=== PATIENT | female | born 1995 | race Caucasian/White ===

== ENCOUNTER 2020-09-06 13:16 | Emergency (ER) | payer BC, MEDICAID, SELFPAY ==
[2020-09-06 13:19] VITALS: BP 112/77; PULSE 105; RESP 16; O2SAT 99; BMI 20.4
--- NOTE | 2020-09-06 13:40 | W.ED.GENADLT ---
HPI - General Adult General: Chief complaint: General Medical Stated complaint: N/ CHILLS/WEAKNESS Time Seen by Provider: 09/06/20 13:31 History of Present Illness: HPI narrative: This patient is a 25 year old female presenting with vomiting and diarrhea. She reports that it started yesterday afternoon and has been ongoing. She has been exposed to her grandmother who has had vomiting and diarrhea - but also is trying to stop using fentanyl and thinks the symptoms could be withdrawal. She last used about 30 minutes before the symptoms started - at about 2:30 yesterday. She doesn't know how much she uses - she has been shooting up with about half a cap every 3 or 4 hours. She has been using for about 3 months only. She stopped once for 4 days and had similar symptoms until she used again. She really wants to get clean. Onset (ago): day(s) (1) Associated symptoms: Reports malaise, nausea, vomiting and other (diarrhea); Deny chest pain, dyspnea, headache(s) or rash Review of Systems General: Reports: 10 or more systems reviewed and unremarkable except in HPI and below Const: Reports: malaise Eyes: Denies: change in vision ENMT: Denies: odynophagia Card: Denies: chest pain or swelling of feet/ankles Resp: Denies: dyspnea, productive cough or non-productive cough GI: Reports: nausea, vomiting and diarrhea : Denies: flank pain or difficulty voiding Musc: Denies: neck pain or back pain Skin/Breast: Denies: rash Neuro: Denies: headache(s), numbness in extremities or weakness in extremities Laurent/Lymph: Denies: easy bruising or easy bleeding Physical Exam Const: COMMON NORMALS: no acute distress, patient oriented x3, no limitations and alert GENERAL APPEARANCE: cooperative and comfortable HENMT: HEAD & SCALP: normal to inspection FACE & SINUS: normal facial exam Eye: GENERAL EYE: appearance normal, both eyes and all related structures Neck/C-Spine: COMMON NORMALS: supple, no meningeal signs and no JVD Chest: COMMONS NORMALS: normal inspection of the chest Resp: COMMON NORMALS: normal respiratory effort, No use of accessory muscles and clear to auscultation bilaterally AUSCULTATION: clear to auscultation bilaterally Cardio: COMMON NORMALS: no JVD, regular rate, regular rhythm and No murmurs present (Cardio) RATE: regular rate RHYTHM: regular rhythm GI: COMMON NORMALS: Normal to inspection, nondistended, normoactive bowel sounds present, Soft to palpation and non-tender INSPECTION: Yes normal to inspection AUSCULTATION: Yes normoactive bowel sounds PALPATION: Yes Soft to palpation Back/Pelvis: COMMON NORMALS: thoracic and lumbar spine normal to inspection Extremity: COMMON NORMALS: normal to inspection Neuro: COMMON NORMALS: patient oriented x3, moves all extremities, no focal motor deficits and no sensory deficits noted SENSORIUM/ORIENTATION: Yes alert MENINGEAL SIGNS: Yes no meningeal signs Psych: COMMON NORMALS: mental status grossly normal, cooperative and normal affect Skin: COMMON NORMALS: no rashes or lesions noted and turgor normal GENERAL SKIN EXAM: no rashes or lesions noted and turgor normal Course ED course: Patient eventually felt better and was able to keep down fluids. Given resources and I answered her questions about opiates, treatment, withdrawal - and about hepatitis. She has outpatient follow up and I encouraged her to ask for help with her substance abuse. Vital Signs: Vital signs: Vital Signs Pulse Rate 105 H 09/06/20 13:19 Respiratory Rate 16 09/06/20 13:19 Blood Pressure 112/77 09/06/20 13:19 Pulse Oximetry 99 09/06/20 13:19 MDM - General Adult MDM Narrative: Medical decision making narrative: GE, opiate withdrawal, Lab Data: Labs: Lab Results 09/06/20 09/06/20 09/06/20 Range/Units 14:03 14:03 14:03 WBC 9.5 (4.0-10.0) 10^3/ uL RBC 4.80 (4.1-5.3) 10^6/u L Hgb 14.3 (11.5-15.3) g/dL Hct 43.9 (37.0-47.0) % MCV 91.5 (81-99) fL MCH 29.8 (28.0-34.0) pg MCHC 32.6 (30.0-36.0) g/dL RDW 11.9 L (12.1-15.1) % Plt Count 381 (130-400) 10^3/c mm MPV 9.9 (7.4-10.4) fL Neut % (Auto) 79.9 % Lymph % (Auto) 16.7 % [place] % (Auto) 2.5 % Eos % (Auto) 0.1 % Baso % (Auto) 0.5 % Neut # (Auto) 7.61 (1.8-7.7) 10^3/u L Lymph # (Auto) 1.6 (0.8-4.8) 10^3/u L [place] # (Auto) 0.2 (0.2-0.9) 10^3/u L Eos # (Auto) 0.0 (0.0-0.8) 10^3/u L Baso # (Auto) 0.1 (0.0-0.1) 10^3/u L Nucleated RBC % (a uto) 0 % Nucleated RBCs # 0.0 /100WBC Sodium 141 (136-145) mmol/L Potassium 3.6 (3.5-5.1) mmol/L Chloride 104 (98-107) mmol/L Carbon Dioxide 27 (22-29) mmol/L Anion Gap 13.6 (5-19) BUN 10 (6-20) mg/dL Creatinine 0.5 (0.5-0.9) mg/dL GFR Calculation 151.6 H (90-130) mL/min Glucose 143 H (65-115) mg/dL Calculated Osmolal ity 294 (285-295) mOsm/k g Calcium 9.1 (8.5-10.5) mg/dL Total Bilirubin 1.0 (0.15-1.2) mg/dL AST 71 H (0-32) U/L ALT 213 H (0-33) U/L Alkaline Phosphata se 122 H (35-105) IU/L Total Protein 7.6 (6.6-8.7) g/dL Albumin 4.3 (3.5-5.2) g/dL Globulin 3.3 (1.3-4.6) g/dL HCG, Qual Negative (Negative) Urine Color (Yellow) Urine Appearance (CLEAR) Urine pH (5-7) Ur Specific Gravit y (1.005-1.030) Urine Protein (Negative) Urine Glucose (UA) (Normal) Urine Ketones (Negative) Urine Blood (Negative) Urine Nitrate (Negative) Urine Bilirubin (Negative) Urine Urobilinogen (Negative) mg/dL Ur Leukocyte Cheryl ase (Negative) Urine RBC (0-2) /hpf Urine WBC (0-5) /hpf Ur Squamous Epith Cells (0-5) /hpf Amorphous Sediment /hpf Urine Bacteria (NONE) /hpf Hepatitis A IgM Ab (Nonreactive) Hep Bs Antigen (Nonreactive) Hep B Core IgM Ab (Nonreactive) 09/06/20 09/06/20 Range/Units 14:03 15:04 WBC (4.0-10.0) 10^3/ uL RBC (4.1-5.3) 10^6/u L Hgb (11.5-15.3) g/dL Hct (37.0-47.0) % MCV (81-99) fL MCH (28.0-34.0) pg MCHC (30.0-36.0) g/dL RDW (12.1-15.1) % Plt Count (130-400) 10^3/c mm MPV (7.4-10.4) fL Neut % (Auto) % Lymph % (Auto) % [place] % (Auto) % Eos % (Auto) % Baso % (Auto) % Neut # (Auto) (1.8-7.7) 10^3/u L Lymph # (Auto) (0.8-4.8) 10^3/u L [place] # (Auto) (0.2-0.9) 10^3/u L Eos # (Auto) (0.0-0.8) 10^3/u L Baso # (Auto) (0.0-0.1) 10^3/u L Nucleated RBC % (a uto) % Nucleated RBCs # /100WBC Sodium (136-145) mmol/L Potassium (3.5-5.1) mmol/L Chloride (98-107) mmol/L Carbon Dioxide (22-29) mmol/L Anion Gap (5-19) BUN (6-20) mg/dL Creatinine (0.5-0.9) mg/dL GFR Calculation (90-130) mL/min Glucose (65-115) mg/dL Calculated Osmolal ity (285-295) mOsm/k g Calcium (8.5-10.5) mg/dL Total Bilirubin (0.15-1.2) mg/dL AST (0-32) U/L ALT (0-33) U/L Alkaline Phosphata se (35-105) IU/L Total Protein (6.6-8.7) g/dL Albumin (3.5-5.2) g/dL Globulin (1.3-4.6) g/dL HCG, Qual (Negative) Urine Color Yellow (Yellow) Urine Appearance Cloudy (CLEAR) Urine pH 8 H (5-7) Ur Specific Gravit y 1.015 (1.005-1.030) Urine Protein Neg (Negative) Urine Glucose (UA) Norm (Normal) Urine Ketones Negative (Negative) Urine Blood Neg (Negative) Urine Nitrate Negative (Negative) Urine Bilirubin Neg (Negative) Urine Urobilinogen 1 H (Negative) mg/dL Ur Leukocyte Cheryl ase Trace H (Negative) Urine RBC None (0-2) /hpf Urine WBC 0-4 H (0-5) /hpf Ur Squamous Epith Cells 15-25 H (0-5) /hpf Amorphous Sediment 2+ /hpf Urine Bacteria 1+ H (NONE) /hpf Hepatitis A IgM Ab Non-reactive (Nonreactive) Hep Bs Antigen Non-reactive (Nonreactive) Hep B Core IgM Ab Non-reactive (Nonreactive) Discharge Plan Discharge Patient Disposition: Home Clinical Impression: Opiate withdrawal, Hepatitis C antibody test positive Vomiting Qualifiers: Vomiting type: unspecified Vomiting Intractability: non-intractable Nausea presence: with nausea Qualified Code(s): R11.2 - Nausea with vomiting, unspecified Condition: Stable Prescriptions: New promethazine 25 mg tablet 25 mg PO Q6H PRN (Reason: nausea and vomiting) Qty: 14 RF: 0 baclofen 10 mg tablet 10 mg PO Q8H PRN (Reason: muscle spasm) Qty: 10 RF: 0 Narcan 4 mg/actuation spray,non-aerosol 1 spray intranasal Q2M PRN (Reason: opioid overdose) Qty: 2 RF: 0 Discharge Orders: Discharge ED (Routine); Ordered 09/06/20 Ordered By: Flora Dimas Referrals: [facility], [Staff Physician] - Flores,BRUCE Pal [Primary Care Provider] - Discharge Diet: Advance as tolerated Discharge Activity: Resume usual activity Patient Instructions: Hepatitis C, Opioid Withdrawal (ED), Opioid Safety Activity Restrictions/Additional Instructions: Follow up with your doctor to discuss treatment for hepatitis C and for treatment for your opiate abuse. Coding Level of Care Code ED Aviation Safety Officer for Kaylan Fwd Exam Comprehensive
[2020-09-06] MEDS: sodium chloride 0.9% 1,000 ML 999 ML IV (14:08)
[2020-09-06] MEDS: ondansetron 2 mg/ML SDV 2 mL 4 MG IVP ×2 (14:08→16:57)
[2020-09-06 14:13] LABS: Basophils # 0.1 10^3/uL (0.0-0.1); Basophils % 0.5 %; Eosinophils % 0.1 %; Hematocrit 43.9 % (37.0-47.0); Hemoglobin 14.3 g/dL (11.5-15.3); Lymphocytes # 1.6 10^3/uL (0.8-4.8); Lymphocytes % 16.7 %; Mean Corpuscular HGB Conc 32.6 g/dL (30.0-36.0); Mean Corpuscular Hemoglobin 29.8 pg (28.0-34.0); Mean Corpuscular Volume 91.5 fL (81-99); Mean Platelet Volume 9.9 fL (7.4-10.4); Monocytes # 0.2 10^3/uL (0.2-0.9); Monocytes % 2.5 %; Neutrophils # 7.61 10^3/uL (1.8-7.7); Neutrophils % 79.9 %; Nucleated Red Blood Cells % 0 %; Platelet Count 381 10^3/cmm (130-400); Red Cell Distribution Width 11.9 % (12.1-15.1); White Blood Count 9.5 10^3/uL (4.0-10.0)
[2020-09-06 14:36] LABS: Alanine Aminotransferase 213 U/L (0-33); Albumin Level 4.3 g/dL (3.5-5.2); Alkaline Phosphatase 122 IU/L (35-105); Aspartate Amino Transferase 71 U/L (0-32); Blood Urea Nitrogen 10 mg/dL (6-20); Calcium 9.1 mg/dL (8.5-10.5); Carbon Dioxide 27 mmol/L (22-29); Chloride 104 mmol/L (98-107); Globulin 3.3 g/dL (1.3-4.6); Glomerular Filtration Rate 151.6 mL/min (90-130); Glucose 143 mg/dL (65-115); Osmolality Calculated 294 mOsm/kg (285-295); Sodium 141 mmol/L (136-145); Total Protein 7.6 g/dL (6.6-8.7)
[2020-09-06 14:38] LABS: HCG, Serum Qual Negative (Negative)
[2020-09-06 14:45] LABS: Anion Gap 13.6 (5-19); Potassium 3.6 mmol/L (3.5-5.1)
[2020-09-06 15:41] LABS: Bilirubin Urine Neg (Negative); Blood Urine Neg (Negative); Glucose Urine UA Norm (Normal); Ketones Urine Negative (Negative); Nitrate Urine Negative (Negative); Protein Urine Neg (Negative); Specific Gravity, Urine 1.015 (1.005-1.030); Urine Appearance Cloudy (CLEAR); Urine Color Yellow (Yellow); Urobilinogen Urine 1 mg/dL (Negative); pH Urine 8 (5-7)
[2020-09-06 15:42] LABS: Add Urine Microscopic? YES; Leukocyte Esterase Urine Trace (Negative)
[2020-09-06 15:43] LABS: Add Urine Culture? No; Amorphous Sediment Urine 2+ /hpf; Bacteria Urine 1+ /hpf; Squamous Epithelial Cell Urine 15-25 /hpf (0-5); WBC Urine 0-4 /hpf (0-5)
[2020-09-06 16:48] LABS: Hepatitis A Antibody IgM Non-Reactive (Nonreactive); Hepatitis B Core IgM Non-Reactive (Nonreactive); Hepatitis B Surface Antigen Non-Reactive (Nonreactive)
--- NOTE | 2020-09-06 18:25 | PC.NURSE ---
pt provided with water for PO challenge. pt passed PO challenge. aware.
[2020-09-06 18:33] VITALS: BP 134/78; PULSE 88; RESP 18; O2SAT 99
[2020-09-06 22:34] LABS: Hepatitis C Virus Antibody Reactive (Nonreactive)
== END 2020-09-06 18:34 | disposition home or self-care (01) ==
PROVIDERS: Emergency Provider Emergency Medicine; PCP Nurse Practitioner Family
DX: F11.23 Opioid dependence with withdrawal (principal); B19.20 Unspecified viral hepatitis C without hepatic coma; R11.2 Nausea with vomiting, unspecified
CPT/HCPCS: 80053; 80074; 81001; 84703; 85025; 96374; 96376; 99283; J2405; J7030

== ENCOUNTER 2022-07-01 18:52 | Emergency (ER) | payer BC, MEDICAID, SELFPAY ==
--- NOTE | 2022-07-01 19:02 | ED_ITS ---
HPI - Overdose General: Chief Complaint: Overdose Stated Complaint: possible OD Time Seen by Provider: 07/01/22 18:56 Source: patient Mode of arrival: ambulatory Limitations: no limitations History of Present Illness: Patient presents here with a drug overdose patient was initially unresponsive hypoxic into the 40s I did place a mask on her and did a jaw thrust she then awoke she told me that she did take what she thought was meth but thinks that it had either fentanyl or heroin and it just prior to arrival patient's friend brought her in and when she is unresponsive she is still under the influence was able answer my questions she denies any suicide attempts after the initial drawl thrust with painful stimulation she is breathing on her own with pulse ox in the 90s Review of Systems Const: Denies: fever(s), chills, body aches or change in appetite Eyes: Denies: blurry vision or eye discomfort ENMT: Denies: throat pain or dental pain Card: Denies: chest pain Resp: Denies: dyspnea GI: Denies: abdominal pain, nausea, vomiting or diarrhea : Denies: dysuria Musc: Denies: neck pain or back pain Skin/Breast: Denies: rash Neuro: Denies: headache(s) Psych: Denies: depression Laurent/Lymph: Denies: easy bruising All/Imm: Denies: urticaria Physical Exam Const: COMMON NORMALS: no acute distress, patient oriented x3 and healthy appearing HENMT: COMMON NORMALS: normocephalic and atraumatic HEAD & SCALP: normocephalic and atraumatic Eye: COMMON NORMALS: Equal, round and reactive pupils present and EOMs intact bilaterally PUPIL: Yes Equal, round and reactive pupils present Neck/C-Spine: COMMON NORMALS: full ROM and supple Chest: COMMONS NORMALS: normal inspection of the chest and normal palpation of entire chest wall Resp: COMMON NORMALS: normal respiratory effort, No retractions, No use of accessory muscles and clear to auscultation bilaterally AUSCULTATION: clear to auscultation bilaterally Cardio: COMMON NORMALS: regular rate, regular rhythm and No murmurs present (Cardio) RATE: regular rate RHYTHM: regular rhythm GI: COMMON NORMALS: Normal to inspection, nondistended, normoactive bowel sounds present, Soft to palpation, non-tender and no masses PALPATION: Yes Soft to palpation Extremity: COMMON NORMALS: normal to inspection and full ROM Neuro: COMMON NORMALS: patient oriented x3, moves all extremities and no focal motor deficits Psych: COMMON NORMALS: mental status grossly normal, Normal thought process present and cooperative THOUGHT PROCESS: Normal thought process present Skin: COMMON NORMALS: no rashes or lesions noted and no wounds GENERAL SKIN EXAM: no rashes or lesions noted MDM - Overdose Medical Decision Making Patient presents here with a drug overdose she believes it was likely fentanyl she has been awake and alert here she is requesting discharge at this time I feel she is stable for discharge she is to follow-up with PCP and return if worsening. Lab Data 07/01/22 19:06 07/01/22 19:06 Radiology Impressions Chest X-Ray 07/01/22 19:37 IMPRESSION: Negative chest Laboratory Results WBC 16.3 10^3/uL (4.0-10.0) H 07/01/22 19:06 RBC 4.97 10^6/uL (4.1-5.3) 07/01/22 19:06 Hgb 14.9 g/dL (11.5-15.3) 07/01/22 19:06 Hct 48.1 % (37.0-47.0) H 07/01/22 19:06 MCV 96.8 fl (81-99) 07/01/22 19:06 MCH 30.0 pg (28.0-34.0) 07/01/22 19:06 MCHC 31.0 g/dL (30.0-36.0) 07/01/22 19:06 RDW 12.9 % (12.1-15.1) 07/01/22 19:06 Plt Count 494 10^3/cmm (130-400) H 07/01/22 19:06 MPV 9.8 fL (7.4-10.4) 07/01/22 19:06 Neut % (Auto) 64.2 % 07/01/22 19:06 Lymph % (Auto) 30.0 % 07/01/22 19:06 [place] % (Auto) 3.8 % 07/01/22 19:06 Eos % (Auto) 0.6 % 07/01/22 19:06 Baso % (Auto) 1.0 % 07/01/22 19:06 Neut # (Auto) 10.45 10^3/uL (1.8-7.7) H 07/01/22 19:06 Lymph # (Auto) 4.9 10^3/uL (0.8-4.8) H 07/01/22 19:06 [place] # (Auto) 0.6 10^3/uL (0.2-0.9) 07/01/22 19:06 Eos # (Auto) 0.1 10^3/uL (0.0-0.8) 07/01/22 19:06 Baso # (Auto) 0.2 10^3/uL (0.0-0.1) H 07/01/22 19:06 Nucleated RBC % (auto) 0 % 07/01/22 19:06 Nucleated RBCs # 0.0 /100WBC 07/01/22 19:06 Sodium 138 mmol/L (136-145) 07/01/22 19:06 Potassium 4.3 mmol/L (3.5-5.1) 07/01/22 19:06 Chloride 102 mmol/L (98-107) 07/01/22 19:06 Carbon Dioxide 22 mmol/L (22-29) 07/01/22 19:06 Anion Gap 18.3 (5-19) 07/01/22 19:06 BUN 9 mg/dL (6-20) 07/01/22 19:06 Creatinine 0.6 mg/dL (0.5-0.9) 07/01/22 19:06 GFR Calculation 120.8 mL/min (90-130) 07/01/22 19:06 Glucose 152 mg/dL (65-115) H 07/01/22 19:06 Calculated Osmolality 288 mOsm/kg (285-295) 07/01/22 19:06 Calcium 9.9 mg/dL (8.5-10.5) 07/01/22 19:06 Total Bilirubin 1.0 mg/dL (0.15-1.2) 07/01/22 19:06 AST 49 U/L (0-32) H 07/01/22 19:06 ALT 76 U/L (0-33) H 07/01/22 19:06 Alkaline Phosphatase 114 U/L (35-105) H 07/01/22 19:06 Total Protein 8.5 g/dL (6.6-8.7) 07/01/22 19:06 Albumin 4.3 g/dL (3.5-5.2) 07/01/22 19:06 Globulin 4.2 g/dL (1.3-4.6) 07/01/22 19:06 Salicylates < 0.3 mg/dL (3-10) L 07/01/22 19:06 Acetaminophen < 5.0 ug/mL (10-30) L 07/01/22 19:06 Ethyl Alcohol < 10 mg/dL (0-10) 07/01/22 19:06 EKG Data EKG 1: I personally reviewed and interpreted this EKG as follows: EKG interpretation date: 07/01/22 EKG interpretation time: 19:30 Interpretation: sinus tach hr [address] or t wave abnormalities qrs 89 qtc 378 Discharge Plan Discharge Patient Disposition: Home Clinical Impression: Drug overdose Condition: Stable Prescriptions: No Action promethazine 25 mg tablet 25 mg PO Q6H PRN (Reason: nausea and vomiting) Qty: 14 0RF baclofen 10 mg tablet 10 mg PO Q8H PRN (Reason: muscle spasm) Qty: 10 0RF Narcan 4 mg/actuation spray,non-aerosol 1 spray intranasal Q2M PRN (Reason: opioid overdose) Qty: 2 0RF Rx Instructions: spray 1 dose into ONE nostril; alternate nostrils w each dose until help arrives Discharge Orders: Discharge ED (Routine); Ordered 07/01/22 Ordered By: Cristian Gill Referrals: Flores,Kae, COLD WORK OPERATOR [Primary Care Provider] - 1-3 days Discharge Diet: Advance as tolerated Discharge Activity: Resume usual activity Patient Instructions: Adult Overdose (ED) Coding Level of Care Code ED General Internal Medicine Physician for Chg Fwd Exam Comprehensive
[2022-07-01 19:18] LABS: Basophils # 0.2 10^3/uL (0.0-0.1); Eosinophils # 0.1 10^3/uL (0.0-0.8); Eosinophils % 0.6 %; Hematocrit 48.1 % (37.0-47.0); Hemoglobin 14.9 g/dL (11.5-15.3); Lymphocytes # 4.9 10^3/uL (0.8-4.8); Mean Corpuscular Volume 96.8 fl (81-99); Mean Platelet Volume 9.8 fL (7.4-10.4); Monocytes # 0.6 10^3/uL (0.2-0.9); Monocytes % 3.8 %; Neutrophils # 10.45 10^3/uL (1.8-7.7); Neutrophils % 64.2 %; Nucleated Red Blood Cells % 0 %; Platelet Count 494 10^3/cmm (130-400); Red Blood Count 4.97 10^6/uL (4.1-5.3); Red Cell Distribution Width 12.9 % (12.1-15.1); White Blood Count 16.3 10^3/uL (4.0-10.0)
--- NOTE | 2022-07-01 19:19 | ECG_ITS ---
[facility] Test Date: 2022-07-01 Pat Name: Anabel Hilario Department: Room: Gender: Female Major Gifts Officer: : 1995 Requested By: Cristian Gill Order Number: [id number] Mark MD: Carson Baker M.D. Measurements Intervals [place] Rate: 116 P: 42 SD: 131 QRS: 69 QRSD: 89 T: 29 QT: 309 QTc: 430 Interpretive Statements SINUS TACHYCARDIA NONSPECIFIC ST & T-WAVE ABNORMALITY ABNORMAL RHYTHM ECG No previous ECG available for comparison Electronically Signed On 07-01-2022 21:35:31 ARTIST AGENT by Carson Baker M.D. [id number]
--- NOTE | 2022-07-01 19:37 | XRR_ITS ---
PROCEDURE INFORMATION: Exam: XR Chest Exam date and time: 07/01/2022 7:44 PM Age: 27 years old Clinical indication: Other: Overdose; Additional info: Od TECHNIQUE: Imaging protocol: Radiologic exam of the chest. Views: 1 view. COMPARISON: No relevant prior studies available. FINDINGS: Lungs: Unremarkable. No consolidation. Pleural spaces: Unremarkable. No pleural effusion. No pneumothorax. Heart/Mediastinum: Unremarkable. No cardiomegaly. Bones/joints: Unremarkable for age. XR/XR chest 1V portable [id number] IMPRESSION: Negative chest
[2022-07-01 19:47] LABS: Acetaminophen < 5.0 ug/mL (10-30); Alanine Aminotransferase 76 U/L (0-33); Albumin Level 4.3 g/dL (3.5-5.2); Alcohol Level < 10 mg/dL (0-10); Alkaline Phosphatase 114 U/L (35-105); Blood Urea Nitrogen 9 mg/dL (6-20); Calcium 9.9 mg/dL (8.5-10.5); Carbon Dioxide 22 mmol/L (22-29); Chloride 102 mmol/L (98-107); Globulin 4.2 g/dL (1.3-4.6); Glomerular Filtration Rate 120.8 mL/min (90-130); Glucose 152 mg/dL (65-115); Osmolality Calculated 288 mOsm/kg (285-295); Salicylate < 0.3 mg/dL (3-10); Sodium 138 mmol/L (136-145); Total Protein 8.5 g/dL (6.6-8.7)
[2022-07-01 19:48] LABS: Anion Gap 18.3 (5-19); Aspartate Amino Transferase 49 U/L (0-32); Potassium 4.3 mmol/L (3.5-5.1)
[2022-07-01 21:01] VITALS: BP 130/72; PULSE 96; RESP 12; O2SAT 95
--- NOTE | 2022-07-01 21:26 | PC.NURSE ---
2x vials of Narcan 0.4mg/ml were pulled prior to knowing pt's name. One vial was open and not used the other was returned into the pyxis.
== END 2022-07-01 21:03 | disposition home or self-care (01) ==
PROVIDERS: Emergency Provider Emergency Medicine; PCP Nurse Practitioner Family
DX: T50.901A Poisoning by unspecified drugs, medicaments and biological substances, accidental (unintentional), initial encounter (principal)
CPT/HCPCS: 71045; 80053; 80307; 85025; 93005; 99285

== ENCOUNTER 2023-09-20 00:22 | Emergency (ER) | payer SELFPAY ==
[2023-09-20 00:23] VITALS: BP 128/76; PULSE 64; RESP 16; TEMP 36.7; O2SAT 99; BMI 21.7
--- NOTE | 2023-09-20 00:41 | W.ED.SEIZURE ---
HPI - Seizure General: Chief Complaint: Seizure Stated Complaint: SEIZURE Time Seen by Provider: 09/20/23 00:41 History of Present Illness: HPI Narrative: 28-year-old female comes in today with seizure-like activity. Patient reports that she has been off of fentanyl for the last 2 days and had a witnessed seizure like activity by [facility] staff. Patient comes from [facility], [place]. Patient is alert and appears nontoxic at this time. Patient reports anxiety. Review of Systems General: Reports: 10 or more systems reviewed and unremarkable except in HPI and below Neuro: Reports: seizure-like activity Physical Exam Const: COMMON NORMALS: alert HENMT: COMMON NORMALS: normocephalic, atraumatic and Normal external nose present HEAD & SCALP: normocephalic and atraumatic NOSE: Normal external nose present MOUTH: Normal oral and palatal mucosa present Neck/C-Spine: COMMON NORMALS: full ROM Resp: COMMON NORMALS: normal respiratory effort and clear to auscultation bilaterally AUSCULTATION: clear to auscultation bilaterally Cardio: COMMON NORMALS: regular rate RATE: regular rate GI: COMMON NORMALS: Soft to palpation PALPATION: Yes Soft to palpation Back/Pelvis: COMMON NORMALS: thoracic and lumbar spine normal to inspection Extremity: COMMON NORMALS: normal to inspection Neuro: SENSORIUM/ORIENTATION: Yes alert Skin: COMMON NORMALS: turgor normal GENERAL SKIN EXAM: turgor normal Course Vital Signs: Vital signs: Vital Signs Temperature 98.1 F 09/20/23 00:23 Pulse Rate 78 09/20/23 01:55 Respiratory Rate 18 09/20/23 01:55 Blood Pressure 111/75 09/20/23 01:55 Pulse Oximetry 100 09/20/23 01:55 Oxygen Delivery Me thod Room Air 09/20/23 00:23 MDM - Seizure MDM Narrative Medical decision making narrative: Patient was brought in by EMS from [facility], [place] for complaints of seizure-like activity. Patient does endorse a history of routine fentanyl use. Patient's last use was 2 days ago when she was arrested for possession. Patient appears nontoxic. Patient denies any other chronic medical problems. Patient denies any history of seizures. Oral mucosa is normal without any lacerations or bruising to the tongue. Patient had no incontinence. Patient moves all extremities well. Patient came out of seizure to normal without any somnolence. Differential diagnosis includes pseudoseizure, epileptic seizure, drug withdrawal, anxiety. Patient given 1 mg of Ativan in the emergency department and was started on hydroxyzine and clonidine for her substance use disorder. Patient was recommended to follow-up with primary care return to ED for worsening or persistent symptoms. Patient was [facility] to [facility] staff. Laboratory values were unremarkable. Patient was stable at discharge. Lab Data 09/20/23 00:51 04 00:51 Labs: Laboratory Results WBC 13.78 10^3/uL (3.29-11.43) H 09/20/23 00:51 RBC 5.08 10^6/uL (3.85-5.65) 09/20/23 00:51 Hgb 15.00 g/dL (11.27-16.99) 09/20/23 00:51 Hct 43.4 % (36-47) 09/20/23 00:51 MCV 85.4 fl (85-98) 09/20/23 00:51 MCH 29.5 pg (27-33) 09/20/23 00:51 MCHC 34.6 g/dL (30-55) 09/20/23 00:51 RDW 12.0 % (12.1-15.1) L 09/20/23 00:51 Plt Count 528 10^3/cmm (157-399) H 09/20/23 00:51 MPV 9.7 fL (7.4-10.4) 09/20/23 00:51 Neut % (Auto) 71.8 % 09/20/23 00:51 Lymph % (Auto) 20.8 % 09/20/23 00:51 [place] % (Auto) 6.6 % 09/20/23 00:51 Eos % (Auto) 0.1 % 09/20/23 00:51 Baso % (Auto) 0.4 % 09/20/23 00:51 Neut # (Auto) 9.89 10^3/uL (1.8-7.7) H 09/20/23 00:51 Lymph # (Auto) 2.9 10^3/uL (0.8-4.8) 09/20/23 00:51 [place] # (Auto) 0.9 10^3/uL (0.2-0.9) 09/20/23 00:51 Eos # (Auto) 0.0 10^3/uL (0.0-0.8) 09/20/23 00:51 Baso # (Auto) 0.1 10^3/uL (0.0-0.1) 09/20/23 00:51 Nucleated RBC % (auto) 0 % 09/20/23 00:51 Nucleated RBCs # 0.0 /100WBC 09/20/23 00:51 Sodium 140 mmol/L (136-145) 09/20/23 00:51 Potassium 3.4 mmol/L (3.5-5.1) L 09/20/23 00:51 Chloride 102 mmol/L (98-107) 09/20/23 00:51 Carbon Dioxide 25 mmol/L (22-29) 09/20/23 00:51 Anion Gap 16.4 (5-19) 09/20/23 00:51 BUN 22 mg/dL (6-20) H 09/20/23 00:51 Creatinine 0.6 mg/dL (0.5-0.9) 09/20/23 00:51 GFR Calculation 119.9 mL/min (90-130) 09/20/23 00:51 Glucose 113 mg/dL (65-115) 09/20/23 00:51 Calculated Osmolality 294 mOsm/kg (285-295) 09/20/23 00:51 Calcium 9.7 mg/dL (8.5-10.5) 09/20/23 00:51 Total Bilirubin 1.3 mg/dL (0.15-1.2) H 09/20/23 00:51 AST 35 U/L (0-32) H 09/20/23 00:51 ALT 61 U/L (0-33) H 09/20/23 00:51 Alkaline Phosphatase 83 U/L (35-105) 09/20/23 00:51 Total Protein 8.1 g/dL (6.6-8.7) 09/20/23 00:51 Albumin 4.4 g/dL (3.5-5.2) 09/20/23 00:51 Globulin 3.7 g/dL (1.3-4.6) 09/20/23 00:51 Urine Color Yellow (Yellow) 09/20/23 00:59 Urine Appearance Clear (CLEAR) 09/20/23 00:59 Urine pH 6 (5-7) 09/20/23 00:59 Ur Specific [place] 1.005 (1.005-1.030) 09/20/23 00:59 Urine Protein Neg (Negative) 09/20/23 00:59 Urine Glucose (UA) Norm (Normal) 09/20/23 00:59 Urine Ketones 1+ (Negative) H 09/20/23 00:59 Urine Blood Neg (Negative) 09/20/23 00:59 Urine Nitrate Negative (Negative) 09/20/23 00:59 Urine Bilirubin Neg (Negative) 09/20/23 00:59 Urine Urobilinogen Neg mg/dL (Negative) 09/20/23 00:59 Ur Leukocyte Esterase Negative (Negative) 09/20/23 00:59 Urine Opiates Screen Negative ng/mL (Negative) 09/20/23 00:59 Ur Barbiturates Screen Negative ng/mL (Negative) 09/20/23 00:59 Ur Phencyclidine Scrn Negative ng/mL (Negative) 09/20/23 00:59 Ur Amphetamines Screen Positive ng/mL (Negative) H 09/20/23 00:59 U Benzodiazepines Scrn Negative ng/mL (Negative) 09/20/23 00:59 Urine Cocaine Screen Negative ng/mL (Negative) 09/20/23 00:59 U Marijuana (THC) Screen Negative ng/mL (Negative) 09/20/23 00:59 No radiology studies performed this visit Discharge Plan Discharge Patient Disposition: Home Clinical Impression: Drug withdrawal seizure Qualifiers: Complication of substance-induced condition: uncomplicated Qualified Code(s): F19.930 - Other psychoactive substance use, unspecified with withdrawal, uncomplicated Condition: Stable Prescriptions: New clonidine HCl 0.1 mg tablet 0.1 mg PO BID Qty: 14 0RF hydroxyzine HCl 25 mg tablet 25 mg PO Q8H PRN (Reason: anxiety) Qty: 30 0RF No Action promethazine 25 mg tablet 25 mg PO Q6H PRN (Reason: nausea and vomiting) Qty: 14 0RF baclofen 10 mg tablet 10 mg PO Q8H PRN (Reason: muscle spasm) Qty: 10 0RF Narcan 4 mg/actuation spray,non-aerosol 1 spray intranasal Q2M PRN (Reason: opioid overdose) Qty: 2 0RF Rx Instructions: spray 1 dose into ONE nostril; alternate nostrils w each dose until help arrives Discharge Orders: Discharge ED (Routine); Ordered 09/20/23 Ordered By: Nikita Pederson Referrals: Kae Flores APN [Primary Care Provider] - Discharge Diet: Usual diet Discharge Activity: Increase activity as tolerated Patient Instructions: Polysubstance Use Disorder (ED) Activity Restrictions/Additional Instructions: Give clonidine 0.1 mg 1 tablet 2 times a day for control of withdrawal symptoms. Give hydroxyzine 25 mg 1 tablet every 8 hours as needed for anxiety. Encourage plenty of water and fluids. Follow-up with primary care. Return to ED as needed. Coding Level of Care Code ED Inventory Auditor for Kaylan Puentes
[2023-09-20 01:02] LABS: Basophils # 0.1 10^3/uL (0.0-0.1); Basophils % 0.4 %; Eosinophils % 0.1 %; Hematocrit 43.4 % (36-47); Lymphocytes # 2.9 10^3/uL (0.8-4.8); Lymphocytes % 20.8 %; Mean Corpuscular HGB Conc 34.6 g/dL (30-55); Mean Corpuscular Hemoglobin 29.5 pg (27-33); Mean Corpuscular Volume 85.4 fl (85-98); Mean Platelet Volume 9.7 fL (7.4-10.4); Monocytes # 0.9 10^3/uL (0.2-0.9); Monocytes % 6.6 %; Neutrophils # 9.89 10^3/uL (1.8-7.7); Neutrophils % 71.8 %; Nucleated Red Blood Cells % 0 %; Platelet Count 528 10^3/cmm (157-399); Red Blood Count 5.08 10^6/uL (3.85-5.65); White Blood Count 13.78 10^3/uL (3.29-11.43)
[2023-09-20] MEDS: LORazepam 2 mg/mL INJ 10 mL MDV 1 MG IV (01:08)
[2023-09-20 01:09] LABS: Add Urine Microscopic? NO; Charge for UA Resulting for Rev
[2023-09-20 01:13] LABS: Bilirubin Urine Neg (Negative); Blood Urine Neg (Negative); Glucose Urine UA Norm (Normal); Ketones Urine 1+ (Negative); Leukocyte Esterase Urine Negative (Negative); Nitrate Urine Negative (Negative); Protein Urine Neg (Negative); Specific Gravity, Urine 1.005 (1.005-1.030); Urine Appearance Clear (CLEAR); Urine Color Yellow (Yellow); Urobilinogen Urine Neg (Negative); pH Urine 6 (5-7)
[2023-09-20 01:21] LABS: Amphetamines Screen Urine Positive (Negative); Barbiturates Screen Urine Negative (Negative); Benzodiazepines Screen Urine Negative (Negative); Cocaine Screen Urine Negative (Negative); Opiate Screen Urine Negative (Negative); PCP Screen Urine Negative (Negative); THC Screen Urine Negative (Negative)
[2023-09-20 01:27] LABS: Alanine Aminotransferase 61 U/L (0-33); Albumin Level 4.4 g/dL (3.5-5.2); Alkaline Phosphatase 83 U/L (35-105); Anion Gap 16.4 (5-19); Aspartate Amino Transferase 35 U/L (0-32); Blood Urea Nitrogen 22 mg/dL (6-20); Calcium 9.7 mg/dL (8.5-10.5); Carbon Dioxide 25 mmol/L (22-29); Chloride 102 mmol/L (98-107); Creatinine Clr Calc Pharmacy 110.1578; Globulin 3.7 g/dL (1.3-4.6); Glomerular Filtration Rate 119.9 mL/min (90-130); Glucose 113 mg/dL (65-115); Osmolality Calculated 294 mOsm/kg (285-295); Potassium 3.4 mmol/L (3.5-5.1); Sodium 140 mmol/L (136-145); Total Bilirubin 1.3 mg/dL (0.15-1.2); Total Protein 8.1 g/dL (6.6-8.7)
[2023-09-20 01:48] VITALS: BP 111/75
[2023-09-20] MEDS: cloNIDine 0.1 mg Tablet 0.100000000000000006 MG PO (01:48)
[2023-09-20 01:49] VITALS: BP 111/75; PULSE 71; RESP 18; O2SAT 100
[2023-09-20] MEDS: cloNIDine 0.1 mg Tablet 0.400000000000000022 MG PO (01:49)
[2023-09-20] MEDS: hyDROXYzine 25 mg Capsule 100 MG PO (01:49)
[2023-09-20 01:55] VITALS: BP 111/75; PULSE 78; RESP 18; O2SAT 100
== END 2023-09-20 01:47 | disposition home or self-care (01) ==
PROVIDERS: Emergency Provider Nurse Practitioner Family; PCP Nurse Practitioner Family
DX: F11.93 Opioid use, unspecified with withdrawal (principal); G40.89 Other seizures
CPT/HCPCS: 80053; 80306; 81003; 85025; 96374; 99284; J2060